=== PATIENT | male | born 1985 | race Caucasian/White ===

== ENCOUNTER → 2017-08-08 | Outpatient (CLI) | payer OTHER ==
[~2017-08-08] MED LIST: NAPROSYN500 MG PO; NEURONTIN 300300 M1 PO; NORCO 5-325 TA1 EACH PO; ROBAXIN 750 MG750 M1 PO; ZANAFLEX4 MG PO
--- NOTE | 2017-08-13 07:21 | PAINCON ---
[facility] [address] [place] [address] PAIN MANAGEMENT CONSULTATION Name: BERTINHARMONY Room: [facility] Gayle#: [id number] Admission: 08/08/17 Attend Phys: Lorna So Discharge: Date of : 83 Report #: [id number] THIS REPORT FOR: //name// CC: Emmanuel Jose HISTORY OF PRESENT ILLNESS: The patient is a 31-year-old gentleman, prior treated for lumbar radiculopathy and axial back pain. He had 3 lumbar epidural injections, August and October of last year. Last seen in pain clinic 02/28/2017. Referred the patient to physical therapy for chiropractic manipulation. Continued the patient on low-dose hydrocodone 5/325, using 2 or 3 a week; Naprosyn 500 mg b.i.d. and methocarbamol 750 b.i.d. for spasm. We discontinued gabapentin. He returns to pain clinic today. He notes he is "better" overall, but still has some subjective pain; he rates 1 on a VAS. He has been going to the chiropractor once or twice a week and been doing physical therapy 2 times a week and he works out about 5 times a week. 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 He has a fairly muscular built. He is 5 feet 7, 210 pounds with a BMI of 32 kilograms per meter squared, although he is really not obese. He is fairly muscular gentleman. PHYSICAL EXAMINATION: VITAL SIGNS: Blood pressure is 135/69, pulse 72 and respiratory rate 16. MUSCULOSKELETAL: Subjective pain in the low back, though range of motion is improving. Pain is more in the left side of the L5-S1 and SI area, though no discrete trigger points or focal findings are noted. We reviewed the fact that opiate medications are being used to provide analgesia adequate to support activities of daily living, not attempting to achieve a specific pain score on the 0-10 Visual Analog Scale. The current opiate medications are providing sufficient analgesia to allow the patient to participate in activities of daily living. The patient is not exhibiting any aberrant behavior suggestive of drug diversion. The patient is not having any adverse reactions to medications. The patient is not suffering from daytime somnolence or mental acuity changes. The patient is managing opiate-induced constipation with appropriate civc-hbx-qsrdoco agents and dietary considerations. The patient was counseled on concern for caution with operating a motor vehicle while using opiate medications. A physical exam was performed and the patient's functional status was evaluated. All patients with back pain were advised against the bed rest greater than 4 days and were advised to return to normal activities. Pain score assessment was noted and the treatment plan was reviewed with the patient. All current medications, both prescribed and OTC [place] [address] PAIN MANAGEMENT CONSULTATION Name: HARMONY DENTON Room: [facility] KARIN Araujo#: [id number] Admission: 08/08/17 Attend Phys: Lorna So Discharge: Date of : 83 Report #: [id number] electronic medical record. Tobacco screening was accomplished and smoking cessation was advised when indicated. BMI was noted and diet/exercise modification was recommended for all patients following outside normal parameters. I reviewed with the patient today their responsibilities to safeguard prescription medications, reviewed their responsibility to utilize medications only as prescribed by the physician. They are to seek and receive pain medications only from 1 physician group ( [facility]). They are to use 1 pharmacy and keep the clinic informed if they change pharmacies. Their responsibilities include making followup visits in a timely fashion and to avoid abrupt discontinuation of medication usage. Their responsibilities further include bringing their medications (bottles from the pharmacy with residual pills) to the visit for possible confirmation of pill counts and the patient understands it is their responsibility to submit to random drug screens to ensure both that the medications prescribed are present, and that no other controlled substances are present. All prescriptions provided today were generated electronically. ASSESSMENT: Chronic axial back pain; history of lumbar radiculopathy, requiring modest complex medication management. RECOMMENDATION: 1. We will refer back to physical therapy for ongoing core strengthening recommendations and chiropractic manipulation for myofascial and spondylitic pain. 2. Renew low-dose hydrocodone 5/325, limit 60 tablets. This will typically last the patient numerous months. We will renew tizanidine 4 mg t.i.d. for spasm. We talked about using Naprosyn on a non-daily basis with a general concern for NSAID agents and slight increase in cardiac risk. Personally, the patient has no specific risk factors, he does not smoke and he is not hypertensive. He has not had a history of coronary artery disease. He does have an endomorphic build and does have positive family history of coronary artery disease with father having of a myocardial infarction. Discharged in good and stable condition with a caveat that he take Naprosyn on a non-daily basis, hydrocodone on a rare basis, renewal for physical therapy and chiropractic manipulation. Follow up p.r.n. <ELECTRONICALLY SIGNED> By: Frank Jose DO 08/13/17 0721 [id number] Centerjohanna Jose DO /doroteo
== END ==
LOC: M.PC 02:48
DX: M54.16 Radiculopathy, lumbar region (principal); M54.9 Dorsalgia, unspecified; Z79.899 Other long term (current) drug therapy